=== PATIENT | female | born 1985 | race Hispanic/Latino ===

== ENCOUNTER → 2018-06-20 | Outpatient (CLI) | payer OTHER ==
--- NOTE | 2018-06-21 09:10 | Diagnostic Imaging Report ---
#[id number] - USBRELIMLT ULTRASOUND OF THE LEFT BREAST : 06/20/2018 Comparison is made to exam dated: 06/20/2018 mammogram - [facility]. Color flow and real-time ultrasound were performed on the left breast. Focused ultrasound was accomplished in the area where the patient has pain with scanning from 11-2 o'clock. -At 11 o'clock 4 cm from the nipple there is a benign cyst measuring 6 x 4 x 4 mm. -No abnormality is noted where the patient complains of pain laterally. IMPRESSION: BENIGN There is no sonographic evidence of malignancy. Follow-up with ACR/ACS guidelines. Heath Hill Jr., D.O. cw/:06/20/2018 15:43:11 Inside Sales Agent: Diony Garcia RDMS, [facility] letter sent: Normal Exam Ultrasound BI-RADS: 2 Benign
--- NOTE | 2018-06-21 09:10 | Diagnostic Imaging Report ---
#[id number] - MGDXBIL #BILATERAL FIRST EVER DIGITAL DIAGNOSTIC MAMMOGRAM WITH CAD: 06/20/2018 No prior exams were available for comparison. Current study contains 9 films. The tissue of both breasts is heterogeneously dense. This may lower the sensitivity of mammography. Current study was also evaluated with a Computer Aided Detection (CAD) system. Bilateral breast implants are intact. A palpable marker signifies where the patient feels pain at the 1 o'clock position, left breast. No significant masses, calcifications, or other findings are seen in either breast. IMPRESSION: BENIGN There is no mammographic evidence of malignancy. A 3 year screening mammogram is recommended. The patient will be notified by letter of the results. Heath Hill Jr., D.O. cw/:06/20/2018 15:44:29 Duck Operator: Lavonne MARTIN(R)(M), [facility] letter sent: Normal Exam Mammogram BI-RADS: 2 Benign
== END ==
LOC: MAMMO 10:00
PROVIDERS: ATTEND Obstetrics & Gynecology
DX: N64.4 Mastodynia (principal); N64.52 Nipple discharge
CPT/HCPCS: 77066